=== PATIENT | female | born 1960 | race American Indian/Alaskan Native ===

== ENCOUNTER 2020-12-13 09:52 | Day surgery (SDC) | payer MEDICAID ==
[~2020-12-13 09:52] MED LIST: Lactated Ringers 1,000 ML IV SCH; Sodium Chloride 0.9% 10 ML SDV IV PRN; Sodium Chloride 0.9% 10 ML Syringe FLUSH PRN; Sodium Chloride 0.9% 2.5 ML Syringe FLUSH PRN; ceFAZolin 2 GM in Premix Bag 1 BAG IV ONE
--- NOTE | 2020-12-13 11:06 | PCM.PREANE ---
Preanesthetic Assessment - Anesthesia/Transfusion/Family Hx Anesthesia History: Prior Anesthesia Without Reaction Family History of Anesthesia Reaction: No Transfusion History: Prior Transfusion Without Reaction - Review of Systems General: No Symptoms Pulmonary: No Symptoms Cardiovascular: No Symptoms Gastrointestinal: No Symptoms Neurological: No Symptoms Other: Reports: None - Physical Assessment NPO Status Date: 12/13/20 NPO Status Time: 00:00 Height: 5 ft 4 in Weight: 229 lb ASA Class: 3 Mental Status: Alert & Oriented x3 Dentition: Reports: Normal Dentition ROM/Head Extension: Full Lungs: Clear to Auscultation, Normal Respiratory Effort Cardiovascular: Regular Rate, Regular Rhythm - Allergies Allergies/Adverse Reactions: Allergies Allergy/AdvReac Type Severity Reaction Status Date / Time No Known Allergies Allergy Verified 12/12/20 13:33 - Blood Blood Available: No - Anesthesia Plan Pre-Op Medication Ordered: None - Acknowledgements Anesthesia Type Planned: General Anesthesia Pt an Appropriate Candidate for the Planned Anesthesia: Yes Alternatives and Risks of Anesthesia Discussed w Pt/Guardian: Yes Pt/Guardian Understands and Agrees with Anesthesia Plan: Yes PreAnesthesia Questionnaire HEENT History: Reports: Other (See Below) Other HEENT History: wears glasses Cardiovascular History: Reports: None Respiratory History: Reports: None Gastrointestinal History: Reports: None Genitourinary History: Reports: None 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: Musculoskeletal History: Reports: None Neurological History: Reports: None Psychiatric History: Reports: None Endocrine/Metabolic History: Reports: Obesity/BMI 30+, Other (See Below) Other Endocrine/Metabolic History: prediabetic Hematologic History: Reports: Blood Transfusion(s) Immunologic History: Reports: None Oncologic (Cancer) History: Reports: Breast Dermatologic History: Reports: None - Past Surgical History Head Surgeries/Procedures: Reports: None HEENT Surgical History: Reports: None Cardiovascular Surgical History: Reports: None Respiratory Surgical History: Reports: None GI Surgical History: Reports: Appendectomy Female Surgical History: Reports: Breast Biopsy, Mastectomy, Other (See Below) Other Female Surgeries/Procedures: hx laparotomy for tubal , hx right mastectomy with sentinal node bx Endocrine Surgical History: Reports: None Neurological Surgical History: Reports: None Musculoskeletal Surgical History: Reports: None Oncologic Surgical History: Reports: Mastectomy Other Oncologic Surgeries/Procedures: right mastectomy Dermatological Surgical History: Reports: None - SUBSTANCE USE Tobacco Use Status *Q: Former Tobacco User Tobacco Use Within Last Twelve Months: No - HOME MEDS Home Medications: Home Meds Acetaminophen [Tylenol Extra Strength] 2 tab PO ASDIRECTED PRN 12/12/20 [History] Ibuprofen [Motrin] 800 mg PO ASDIRECTED PRN 12/12/20 [History] - CURRENT (IN HOUSE) MEDS Current Meds: Current Medications Lactated Ringer's (Ringers, Lactated) 1,000 mls @ 125 mls/hr IV ASDIRECTED YAAKOV Sodium Chloride (Sodium Chloride 0.9% 2.5 Ml Syringe) 2.5 ml FLUSH ASDIRECTED PRN PRN Reason: Keep Vein Open Sodium Chloride (Sodium Chloride 0.9% 10 Ml Sdv) 10 ml IV ASDIRECTED PRN PRN Reason: IV Use Sodium Chloride (Sodium Chloride 0.9% 10 Ml Syringe) 10 ml FLUSH ASDIRECTED PRN PRN Reason: Keep Vein Open Discontinued Medications Lactated Ringer's (Ringers, Lactated) 1,000 mls @ 125 mls/hr IV ASDIRECTED YAAOKV Cefazolin Sodium/Dextrose 2 gm (/ Premix) 50 mls @ 100 mls/hr IV ONETIME ONE Stop: 12/13/20 09:49
[2020-12-13] MEDS ORDERED: Ondansetron 4 MG/2 ML SDV ONE (11:16)
[2020-12-13] MEDS ORDERED: Propofol 200 MG/20 ML SDV ONE (11:17)
[2020-12-13] MEDS ORDERED: fentaNYL 100 MCG/2 ML SDV ONE (11:17)
[2020-12-13] MEDS ORDERED: Bupivacaine 0.5% 30 ML SDV ONE (12:19)
[2020-12-13] MEDS ORDERED: Heparin Sodium 100 Units/ML 3 ML Syringe ONE ×3 (12:19→12:41)
[2020-12-13] MEDS ORDERED: Lidocaine 1% 20 ML MDV ONE (12:19)
[2020-12-13] MEDS ORDERED: Iopamidol 408 MG/ML 20 ML SDV ONE (12:19)
[2020-12-13] MEDS ORDERED: Albuterol 0.083% 2.5 MG/3 ML Neb Soln NEB PRN (12:22)
[2020-12-13] MEDS ORDERED: HYDROmorphone 2 MG/ML Syringe IVPUSH PRN (12:22)
[2020-12-13] MEDS ORDERED: Metoclopramide 10 MG/2 ML SDV IVPUSH PRN (12:22)
[2020-12-13] MEDS ORDERED: Ondansetron 4 MG/2 ML SDV IVPUSH PRN (12:22)
[2020-12-13] MEDS ORDERED: Naloxone 0.4 MG/ML Syringe IVPUSH PRN (12:22)
[2020-12-13] MEDS ORDERED: fentaNYL 100 MCG/2 ML SDV IVPUSH PRN (12:22)
[2020-12-13] MEDS ORDERED: Morphine 2 MG/ML SYRINGE IVPUSH PRN (12:22)
[2020-12-13] MEDS ORDERED: ceFAZolin 1 GM Vial ONE (12:44)
[2020-12-13] MEDS ORDERED: Octyl 2-Cyanoacrylate 1 Tube ONE (13:31)
--- NOTE | 2020-12-13 13:47 | PCM.OPNOTE ---
- General Post-Op/Procedure Note Date of Surgery/Procedure: 12/13/20 Operative Procedure(s): Left internal jugular port a cath placement Findings: LIJ port placement. Pre Op Diagnosis: Breast cancer Post-Op Diagnosis: same Anesthesia Technique: General LMA Primary Surgeon: Debra Soto Fluid Replacement, Intraop: 1,000 EBL in mLs: 5 Condition: Good
--- NOTE | 2020-12-13 13:50 | PCM.POSTAN ---
POST ANESTHESIA ASSESSMENT - MENTAL STATUS Mental Status: Alert, Oriented - VITAL SIGNS Vital Signs: Last Vital Signs Temp 97.3 F 12/13/20 11:56 Pulse 62 12/13/20 11:56 Resp 16 12/13/20 11:56 BP 147/68 H 12/13/20 11:56 Pulse Ox 97 12/13/20 11:56 - RESPIRATORY Respiratory Status: Respiratory Rate WNL, Airway Patent, O2 Saturation Stable - CARDIOVASCULAR CV Status: Pulse Rate WNL, Blood Pressure Stable - GASTROINTESTINAL GI Status: No Symptoms - POST OP HYDRATION Hydration Status: Adequate & Stable
--- NOTE | 2020-12-13 13:51 | PCM48HPAN ---
Post Anesthesia Note - EVALUATION WITHIN 48HRS OF ANESTHETIC Vital Signs in Normal Range: Yes Patient Participated in Evaluation: Yes Respiratory Function Stable: Yes Airway Patent: Yes Cardiovascular Function Stable: Yes Hydration Status Stable: Yes Pain Control Satisfactory: Yes Nausea and Vomiting Control Satisfactory: Yes Mental Status Recovered: Yes Vital Signs: Last Vital Signs Temp 97.3 F 12/13/20 11:56 Pulse 62 12/13/20 11:56 Resp 16 12/13/20 11:56 BP 147/68 H 12/13/20 11:56 Pulse Ox 97 12/13/20 11:56
--- NOTE | 2020-12-13 14:31 | CR ---
Indication: Port-A-Cath placement Comparison: None available. Technique: Single AP view chest Findings: There is hyperinflation and chronic interstitial change. There is minimal basilar atelectasis versus scar. There is no pneumothorax or pleural effusion. The cardiac silhouette is mildly prominent. There is a left-sided Port-A-Cath with the tip at the cavoatrial junction. The bony thorax is grossly intact. Impression: Status post left-sided Port-A-Cath in satisfactory position. Mild chronic interstitial changes and basilar atelectasis. Dictated by Jem Leiva MD @ 12/13/2020 2:31:[address] Jem Leiva @ Dec 13 2020 2:31PM
[2020-12-13] MEDS ORDERED: traMADol 50 MG Tab PO ONE (14:40)
--- NOTE | 2020-12-13 18:44 | OR ---
SURGEON: DEBRA SOTO MD DATE OF PROCEDURE: 12/13/2020 PREOPERATIVE DIAGNOSES: 1. 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 POSTOPERATIVE DIAGNOSES: 1. 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 PROCEDURE PERFORMED: Left internal jugular Port-A-Cath placement. PRIMARY SURGEON: Debra Soto MD ANESTHESIA: General LMA. FLUIDS: 1000 mL of crystalloid. ESTIMATED BLOOD LOSS: 5 mL. FINDINGS: Left internal jugular Port-A-Cath placement. Catheter tubing ending in the IVC. COMPLICATIONS: None. INDICATIONS: The patient is a 60-year-old female who presents for Port-A-Cath placement. She was recently diagnosed with DCIS, and her pathology results showed the tumor cells to be ER and GA negative as well as HER-2/cuhy positive. She is in need of a Port-A-Cath for chemotherapy. I explained the procedure to the patient including the risks. She verbalized understanding and wishes to proceed. PROCEDURE IN DETAIL: The patient was brought to the OR and placed on the OR table in supine position. A time-out was completed verifying the patient's name, age, date of , allergies, and procedure to be performed. General LMA anesthesia was induced. A roll was placed under the patient's shoulder and both arms tucked to the patient's side. An ultrasound was brought into the field, and I ultrasounded the left side of the neck. I identified the left internal jugular vein and the associated left carotid artery. The neck and chest wall were then prepped and draped in usual standard fashion. Using a sterile ultrasound, I re-identified the vascular anatomy of the left side of the neck. I anesthetized the area with 0.5% Marcaine plain. The patient was then placed into reverse Trendelenburg position. Using ultrasound guidance, I placed a needle into the left internal jugular vein. A good return of venous blood was noted. Guidewire was placed down the vein. Using a C-arm, I placed the guidewire into the superior vena cava. It was then secured to the drapes. I then turned my attention to the left anterior chest wall. I anesthetized an area 2 fingerbreadths below the lateral clavicle using 0.5% Marcaine plain. I also anesthetized the catheter tract up to the neck with 0.5% Marcaine plain. A 15 blade was used to make a 3 cm incision on the anterior chest wall. Cautery was used to dissect down to the level of subcutaneous fat, and a pocket was made into the subcutaneous fat for the Port-A-Cath device. The catheter tubing was then guided from the neck down to the Port-A-Cath site on the anterior chest wall. A vascular dilator and sheath were then placed over the guidewire. Using fluoroscopic guidance, I dilated up my vascular tract. The vascular dilator and guidewire were removed. The catheter tubing was then placed down the vascular sheath into the superior vena cava. The catheter tubing was placed down the vascular sheath, and the vascular sheath was then removed. Under fluoroscopic guidance, the catheter tubing appeared to be in the SVC. There was a good return of venous blood on the distal end of the catheter tubing. It was then flushed with injectable saline. The catheter tubing was then trimmed and placed onto the Port-A-Cath device itself. The port was placed in the chest wall pocket and secured on either side using interrupted 2-0 Prolene sutures. I accessed the Port-A-Cath device and a good return of venous blood was noted. It was locked with 3 mL of heparinized saline. The subcutaneous chest wall pocket was closed with interrupted 3-0 Vicryl sutures, and the subcutaneous fat layer and the skin was closed with a running 4-0 Monocryl stitch. The insertion site on the neck was closed with an interrupted 4-0 Monocryl suture. Dermabond and sterile dressings were applied. The patient was extubated and taken to PACU in stable condition. All counts were complete and correct at the end of the case. A chest x-ray was taken in the PACU, which showed good placement of the catheter tubing. There was no evidence of any acute complications. The patient tolerated the procedure well. BIBI / QUIQUE /[id number] NEHAL
--- NOTE | 2020-12-15 13:58 | CR ---
Indication: Surgery, Port-A-Cath. Technique: Fluoroscopy provided during Port-A-Cath placement. 96.8 seconds fluoro time. Two images. Comparison: None. Findings/Impression : Two fluoroscopic spot images obtained during placement of a left-sided Port-A-Cath. Dictated by Debbie Woodson MD @ 12/15/2020 1:55:[address] Debbie Woodson @ Dec 15 2020 1:55PM
== END 2020-12-13 15:00 | disposition home or self-care (01) ==
LOC: MW.SDS 09:52
PROVIDERS: ATTEND Surgery
DX: C50.911 Malignant neoplasm of unspecified site of right female breast (principal); Z17.1 Estrogen receptor negative status [ER-]; R73.03 Prediabetes; E66.9 Obesity, unspecified; Z68.39 Body mass index [BMI] 39.0-39.9, adult; Z01.812 Encounter for preprocedural laboratory examination; Z20.822 Contact with and (suspected) exposure to COVID-19; Z88.1 Allergy status to other antibiotic agents; Z79.899 Other long term (current) drug therapy; Z98.890 Other specified postprocedural states
CPT/HCPCS: 36561; 71045; 87635; A9270; J0690; J1642; J2704; J3490; J7120; 00532; J2405; J3010; Q9966; U0002

== ENCOUNTER 2022-02-20 12:11 | Day surgery (SDC) | payer MEDICAID ==
[~2022-02-20 12:11] MED LIST changes: +Albuterol 0.083% 2.5 MG/3 ML Neb Soln NEB PRN; +HYDROmorphone 1 MG/ML Syringe IVPUSH PRN; +Metoclopramide 10 MG/2 ML SDV IVPUSH PRN; +Morphine 4 MG/ML VIAL IVPUSH PRN; +Naloxone 0.4 MG/ML SDV IVPUSH PRN; +Ondansetron 4 MG/2 ML SDV IVPUSH PRN; -Sodium Chloride 0.9% 10 ML SDV IV PRN; +Sodium Chloride 0.9% 20 ML SDV IV PRN; -ceFAZolin 2 GM in Premix Bag 1 BAG IV ONE; +fentaNYL 50 MCG/ML SDV IVPUSH PRN
[2022-02-20] MEDS ORDERED: Octyl 2-Cyanoacrylate 1 Tube ONE (12:45)
[2022-02-20] MEDS ORDERED: Lidocaine 1% 20 ML MDV ONE (12:45)
[2022-02-20] MEDS ORDERED: Bupivacaine 0.5% 10 ML SDV ONE (12:45)
[2022-02-20] MEDS ORDERED: Lidocaine 2% 5 ML SDV ONE (12:55)
[2022-02-20] MEDS ORDERED: fentaNYL 100 MCG/2 ML SDV ONE (12:55)
== END 2022-02-20 14:54 | disposition home or self-care (01) ==
LOC: MW.SDS 12:11
PROVIDERS: ATTEND Surgery
DX: Z45.2 Encounter for adjustment and management of vascular access device (principal); D05.10 Intraductal carcinoma in situ of unspecified breast; F41.9 Anxiety disorder, unspecified; G62.9 Polyneuropathy, unspecified; Z90.49 Acquired absence of other specified parts of digestive tract; Z98.890 Other specified postprocedural states; Z88.8 Allergy status to other drugs, medicaments and biological substances; Z88.1 Allergy status to other antibiotic agents; Z79.899 Other long term (current) drug therapy
CPT/HCPCS: 36590; A9270; J0690; J3010; J3490; J7120; 00400